=== PATIENT | male | born 1980 | race African-American/Black ===

== ENCOUNTER → 2020-02-07 | Day surgery (SDC) | payer OTHER ==
[~2020-02-07] VITALS: Ht 175.3 cm; Wt 97.0 kg
[~2020-02-07] MED LIST: BACITRACIN 50,000 UNIT in IV NORMAL SALINE 500ML BAG 500 ML IRR ONE; BUPIVACAINE-EPI 0.5%-1:200000 MPF 30 ML VIAL. INJ ONE; DEXAMETHASONE SOD PHOS 4 MG/ML VIAL ONE; HYDROmorphone 2 MG/ML VIAL ONE; IV RINGERS,LACTATED 1000ML 1,000 ML IV SCH; LIDOCAINE 1% PF 2 ML VIAL. ID PRN; LIDOCAINE 2% PF 5 ML VIAL. ONE; MIDAZOLAM HCL/PF 2 MG/2 ML VIAL. ONE; MORPHINE SULFATE 2 MG/ML VIAL. ONE; ONDANSETRON PF 4 MG/2 ML VIAL. IV PRN; ONDANSETRON PF 4 MG/2 ML VIAL. ONE; PROCHLORPERAZINE 10 MG/2 ML VIAL. IV PRN; PROCHLORPERAZINE 10 MG/2 ML VIAL. ONE; PROPOFOL 10 MG/ML (20ML) VIAL. IV ONE; SEVOFLURANE 61 TO 120 MINUTES. IH ONE; fentaNYL PF VIAL 100 MCG/2 ML VIAL IV PRN; fentaNYL PF VIAL 100 MCG/2 ML VIAL ONE; oxyCODONE/APAP 5/325 1 TAB TABLET PO ONE
[2020-02-07] MEDS: fentaNYL PF VIAL 100 MCG/2 ML VIAL IV PRN ×4 (14:33→15:18)
--- NOTE | 2020-02-07 14:37 | PDOC4 ---
Operative Note Operative Note Operative Note: Preoperative Diagnosis: Right inguinal hernia Postoperative Diagnosis: Same Procedure: Right inguinal hernia repair with mesh Surgeon: Hosea Loan Representative: Ran PADILLA Anesthesia: General EBL: 20 mL Specimen: Right inguinal cord lipoma to pathology Drains: None Complications: None Indication: The patient is a 40-year-old male who was referred with a right inguinal hernia. He was offered surgical repair. The risks of surgery were discussed which include bleeding, infection, recurrence, pain, anesthetic risk, potential need for additional surgery. This is understood and the plan is to proceed. Description: The patient was taken to the operating room and placed supine on the operating table. General anesthesia was performed. The right groin was shaved and prepped with ChloraPrep and draped in a standard surgical manner. An incision was made in the skin lines of the groin with a scalpel. Cautery dissection was carried down to the external oblique. The external oblique aponeurosis was opened down to the external ring. The contents of the inguinal canal were digitally mobilized and encircled with a Colleen drain. The patient had a large indirect hernia sac. The sac was mobilized from the surrounding tissues. There was a sizable cord lipoma that was also excised and sent to pathology. The sac was then fully mobilized down to its base and reduced. The defect was filled with an extra-large Phasix mesh plug. The plug was sutured in position with 2-0 Vicryl. The entire inguinal floor was reinforced with a keyhole Prolene mesh patch. The patch was sutured into position with 2-0 Vicryl as well. Upon completion the mesh rested well providing full support of the inguinal floor. A slit was made to accommodate the cord structures. Hemostasis was good. The external oblique was closed over the mesh with 2-0 Vicryl. Subcutaneous tissue was approximated 3-0 Vicryl and skin was closed with 4-0 Monocryl. The incision was infiltrated with half percent Marcaine with epinephrine. Steri-Strips and a dressing were applied. The patient tolerated procedure well and sent to the recovery room in stable condition. At the end of the case all counts were correct. CR MARS MD Feb 07, 2020 14:37
--- NOTE | 2020-02-07 14:40 | DISCH ---
DISCHARGE INSTRUCTIONS Condition on Discharge Condition on Discharge: Stable Activity After Discharge Activity Instructions for Disc: Other, see below (No living over 20 lbs X 4 weeks) Diet after Discharge Diet after Discharge: Regular Wound Incision Care Wound/Incision Care: Other, see below (keep dressing clean and dry X 72 hours, may then remove and shower) Follow-Up Follow up with: Dr Mars in 2 weeks, call for appointment, CR MARS MD Feb 07, 2020 14:40
[2020-02-07] MEDS: MORPHINE SULFATE 2 MG/ML VIAL. IV PRN ×2 (14:45→14:55)
[2020-02-07 15:45] VITALS: BP 149/81
[2020-02-07] MEDS: HYDROmorphone 2 MG/ML VIAL IV PRN ×2 (15:47→15:57)
--- NOTE | 2020-02-13 09:08 | PATHOLOGY ---
[facility] Accession Number: [id number] . 01 Material submitted: . inguinal area - RIGHT INGUINAL CORD LIPOMA. Modifiers: right . 01 Clinical history: . RIGHT INGUINAL HERNIA . 02 Diagnosis: Soft tissue, "right inguinal hernia cord lipoma", excision: - Partially mesothelial-lined fibroadipose tissue, with focal vascular congestion, compatible with hernia sac and cord lipoma. . (MLK:mml; 02/12/2020) [facility] 02/13/2020 0849 Local . 02 Electronically signed: . Allison Ruth MD, Pathologist NPI- [id number] . 01 Gross description: . Received in formalin labeled "Elvin Yang, right inguinal cord lipoma" is a yellow-alba lobulated soft tissue mass measuring 5.5 x 4.3 x 2.1 cm. The external surface is inked black. The specimen is sectioned to reveal a alba-yellow homogeneous cut surface without hemorrhage or necrosis. Bods Developer tissue is submitted in cassettes A1-A4. ([facility] [place]; 02/08/2020) [facility] 02/08/2020 1145 Local . 02 Pathologist provided ICD-10: K40.90 . 02 CPT . 505145 Specimen Comment: A courtesy copy of this report has been sent to [phone], [phone] Specimen Comment: [id number] Specimen Comment: Report sent to / DR ADAMS Performed at: 01 [facility] [address], [place], [place] [id number] MD Marcio Sy MD Phone: [phone] Performed at: [address] [facility] [address] [place], [place] [id number] MD Mary Cutler MD Phone: [phone]
== END ==
LOC: SURG 11:49 → EEVIPCON 12:45
PROVIDERS: ATTEND Surgery
DX: K40.90 Unilateral inguinal hernia, without obstruction or gangrene, not specified as recurrent (principal); D17.79 Benign lipomatous neoplasm of other sites
CPT/HCPCS: 49505; 88304; A7015; C1781; J0690; J0780; J1100; J1170; J2250; J2270; J2405; J2704; J3010; J7040; J7120